=== PATIENT | male | born 1990 | race Two or more races ===

== ENCOUNTER 2023-11-11 09:50 | Emergency (ER) | payer OTHER ==
[~2023-11-11] VITALS: Ht 170.2 cm; Wt 90.9 kg
[2023-11-11 10:04] VITALS: BP 138/93; PULSE 63; RESP 18; TEMP 97.8; O2SAT 98
== END 2023-11-11 14:02 | disposition left against medical advice (07) ==
LOC: ER 09:51
DX: M54.9 Dorsalgia, unspecified (principal); Z53.21 Procedure and treatment not carried out due to patient leaving prior to being seen by health care provider
CPT/HCPCS: 99281